=== PATIENT | female | born 1995 | race Caucasian/White ===

== ENCOUNTER 2020-10-09 02:54 | Emergency (ER) | payer BC ==
[2020-10-09] MEDS ORDERED: LORAZEPAM INJ 2 MG/1 ML VIAL IV ONE (03:13)
--- NOTE | 2020-10-09 03:18 | ER Document Report ---
ED Cardiac - General Chief Complaint: Irregular Pulse Stated Complaint: FAST HEART RATE Time Seen by Provider: 10/09/20 03:08 Notes: Patient is a 25-year-old female that comes emergency department for chief complaint of palpitations. She states she felt palpitations throughout the day, worse when bending over, but then she started feeling it and this did not stop so she called EMS. EMS reports maximum heart rate was 163. Initially they tr ied vagal maneuvers which seemed to help but then she returned to previous heart rate, reportedly patient was given first 6 mg of adenosine, then followed by 2 separate doses of 12 mg of adenosine. Patient reports a history of SVT, states she was formally on a beta-manolo, she states she recently within the past 3 months delivered a child, she also states that she has been under a lot of stress and her mother just . She states that she eats chocolate but denies caffeine use otherwise, she denies recreational drugs, she denies chest pain, dizziness, passing out, shortness of breath, or any sick symptoms throughout the day. She is on vitamins and has a history of anxiety/depression, denies medical history otherwise. - Related Data Allergies/Adverse Reactions: No Known Allergies Allergy (Verified 10/09/20 03:17) Past Medical History - General Information source: Patient - Social History Smoking Status: Never Smoker Frequency of alcohol use: None Drug Abuse: None Lives with: Family Family History: Reviewed & Not Pertinent - Past Medical History Cardiac Medical History: Reports: Other - SVT Surgical Hx: Negative - Immunizations Immunizations up to date: Yes Hx Diphtheria, Pertussis, Tetanus Vaccination: Yes Review of Systems - Review of Systems Constitutional: No symptoms reported EENT: No symptoms reported Cardiovascular: See HPI Respiratory: No symptoms reported Gastrointestinal: No symptoms reported Genitourinary: No symptoms reported Female Genitourinary: No symptoms reported Musculoskeletal: No symptoms reported Skin: No symptoms reported Hematologic/Lymphatic: No symptoms reported Neurological/Psychological: No symptoms reported Physical Exam - Vital signs Vitals: Temp 98.1 F 10/09/20 02:55 - Notes Notes: GENERAL: Alert, slightly anxious in appearance, no distress noted HEAD: Normocephalic, atraumatic. EYES: Pupils equal, round, and reactive to light, bilaterally dilated. EOMs intact. ENT: Oral mucosa moist, tongue midline. Oropharynx unremarkable. Airway patent. NECK: Full range of motion. Supple. Trachea midline. No lymphadenopathy. LUNGS: Clear to auscultation bilaterally, no wheezes, rales, or rhonchi. No respiratory distress. Non-tender chest wall. HEART: Significant tachycardia but normal rhythm, no murmur ABDOMEN: Soft, non-tender. Non-distended. EXTREMITIES: Moves all 4 extremities spontaneously. No edema, normal radial and dorsalis pedis pulses bilaterally. No cyanosis. BACK: no cervical, thoracic, lumbar midline tenderness. No saddle anesthesia, normal distal neurovascular exam. Moves all extremities in full range of motion. NEUROLOGICAL: Alert and oriented x3. Normal speech. Cranial nerves II through XII grossly intact. Strength 5/5 in all extremities. PSYCH: Slightly anxious in appearance and slightly shaky but otherwise unremarkable and cooperative SKIN: Warm, dry, normal turgor. No rashes or lesions noted. Course - Re-evaluation Re-evalutation: 10/09/20 03:17 On my evaluation heart rate is in the 130s to 140s, patient has dilated pupils, she is shaky, she is mildly anxious in appearance. However she does not have any current symptoms other than the vague sensation of palpitations. By EKG patient appears to be having sinus tachycardia with no other concerning findings at this time. Patient will be given lorazepam 1 mg dose and work-up is pending. CBC nonspecific, chemistry shows slightly low potassium at 3.3 with unremarkable magnesium, troponin is negative, chemistry otherwise unremarkable, Heart rate improved into the 120s to 140s range with lorazepam but on my reevaluation patient is still in the 130s. She does not have any complaints. Her only complaint up to this point has been the palpitations. 10/09/20 Thyroid panel is actually very abnormal with significant hyperthyroidism noted. I discussed with patient. She states she never was told anything about her thyroid and she does not believe this was ever evaluated with her previous history of tachycardia. She states she needs a primary care referral because her primary care provider recently and she will be able to follow- up, fill medications, and be compliant with what ever recommendations we offer. I discussed the case with Dr. Schumacher. He does recommend discussion with the hospitalist for recommendations. I discussed with Dr. Smith manufacturing controls engineer. Onwe, he recommends patient be on either methimazole or PTU along with a beta-amnolo and close endocrinology follow-up upon discharge. PTU was chosen because of patient's breast-feeding status. I gave a dose of metoprolol tartrate and after this patient's tachycardia complete resolved, on reevaluation heart rate is in the 80s to 90s. There was 1 very low blood pressure but this was found to have been performed when the cuff was not on the patient's arm properly and she was talking on the phone with the same arm. Unremarkable blood pressures otherwise. No symptoms on reevaluation. I discussed options, patient will follow-up with primary care very closely for referral to endocrinology at that time, she will take medications, discussed return precautions. Patient and state appreciation and agreement. - Vital Signs Vital signs: Temp Pulse Resp BP Pulse Ox 98.0 F 88 16 110/63 100 10/09/20 05:35 10/09/20 05:35 10/09/20 05:35 10/09/20 05:35 10/09/20 05:35 - Laboratory Result Diagrams: 10/09/20 03:10 10/09/20 03:10 Laboratory results interpreted by me: 10/09/20 10/09/20 10/09/20 03:10 03:10 03:10 Hct 35.0 L [place] % (Auto) 16.4 H Seg Neutrophils % 41.0 L Sodium 136.9 L Potassium 3.3 L Creatinine 0.49 L Glucose 115 H ALT 38 H Total Protein 6.0 L TSH < 0.01 L - EKG Interpretation by Me Additional EKG results interpreted by me: EKG shows sinus tachycardia at a rate of 152, QTc 446, normal axis. No overt T wave inversions or ST segment changes in consecutive leads Discharge - Discharge Clinical Impression: Tachycardia, Hyperthyroidism Condition: Stable Disposition: HOME, SELF-CARE Additional Instructions: Based on your evaluation tonight I believe that the cause of your tachycardia (elevated heart rate and palpitations) is hyperthyroidism. You have been prescribed PTU and metoprolol, please take as prescribed. Your potassium was slightly low, increase potassium in your diet. Call the primary care follow-up on Saturday for additional management and likely referral to endocrinology for additional evaluation and treatment. Return if you worsen including difficulty breathing, chest pain, passing out, or any other concerning or worsening symptoms. Prescriptions: Metoprolol Tartrate [Lopressor 50 mg Tablet] 50 mg PO BID #60 tablet Propylthiouracil [Propylthiouracil 50 mg Tablet] 100 mg PO Q8H 30 Days #180 tablet Referrals: DERICK TRINIDAD MD [ACTIVE STAFF] - 10/10/20
[2020-10-09 03:26] LABS: ABSOLUTE EOSINOPHILS # (AUTO) 0.1 10^3/uL (0.0-0.6); ABSOLUTE LYMPHOCYTES (AUTO) 1.9 10^3/uL (0.5-4.7); ABSOLUTE MONOCYTES (AUTO) 0.8 10^3/uL (0.1-1.4); ABSOLUTE NEUT (AUTO) 1.9 10^3/uL (1.7-8.2); BASOPHILS % (AUTO) 0.5 % (0-2); EOSINOPHILS % (AUTO) 1.5 % (0-6); HEMOGLOBIN 12.5 g/dL (12.0-15.5); LYMPHOCYTES % (AUTO) 40.6 % (13-45); MEAN CORPUSCULAR HEMOGLOBIN 31.8 pg (27.0-33.4); MEAN CORPUSCULAR HGB CONC 35.6 g/dL (32.0-36.0); MEAN CORPUSCULAR VOLUME 89 fl (80-97); MONOCYTES % (AUTO) 16.4 % (3-13); PLATELET COUNT 175 10^3/uL (150-450); RED BLOOD COUNT 3.92 10^6/uL (3.72-5.28); RED CELL DISTRIBUTION WIDTH 12.1 % (11.5-14.0); TOTAL CELLS COUNTED % (AUTO) 100 %; WHITE BLOOD COUNT 4.6 10^3/uL (4.0-10.5)
[2020-10-09 04:00] LABS: ALBUMIN 3.5 g/dL (3.5-5.0); ALKALINE PHOSPHATASE 60 U/L (38-126); ANION GAP 10 (5-19); ASPARTATE AMINO TRANSFERASE 33 U/L (14-36); BILIRUBIN,TOTAL 0.4 mg/dL (0.2-1.3); BLOOD UREA NITROGEN 17 mg/dL (7-20); CALCIUM 9.3 mg/dL (8.4-10.2); CARBON DIOXIDE 22 mmol/L (22-30); CHLORIDE 105 mmol/L (98-107); GLUCOSE 115 mg/dL (75-110); POTASSIUM 3.3 mmol/L (3.6-5.0)
[2020-10-09] MEDS ORDERED: METOPROLOL TARTRATE 50 MG TABLET PO ONE (04:57)
[2020-10-09 05:59] LABS: FREE T3 16.4 pg/mL (2.77-5.27); FREE T4 (FREE THYROXINE) 4.46 ng/dL (0.78-2.19)
[2020-10-09 06:12] VITALS: BP 123/59
--- NOTE | 2020-10-09 09:03 | EKG REPORT ---
SEVERITY:- ABNORMAL ECG - SINUS TACHYCARDIA INFERIOR Q WAVES, PROBABLY NORMAL VARIATION : Confirmed by: Sue Fischer 09-Oct-2020 09:02:24
== END 2020-10-09 06:11 | disposition home or self-care (01) ==
LOC: ER 02:54
DX: R00.0 Tachycardia, unspecified (principal); E05.90 Thyrotoxicosis, unspecified without thyrotoxic crisis or storm; R00.2 Palpitations
CPT/HCPCS: 93005; 99284; 96374; 36415; 84439; 83735; 84443; 84703; 85025; 80053; 84484; 84481; 93010; J2060